=== PATIENT | female | born 1980 | race Caucasian/White ===

== ENCOUNTER 2017-06-21 04:30 | Inpatient (IN) | payer OTHER ==
[2017-06-21] MEDS ORDERED: SODIUM CHLORIDE 0.9% 500 ML INFUS.BAG IV ONE (05:22)
--- NOTE | 2017-06-21 05:23 | PDOC ---
Attending Attestation - Resident Resident Name: Melinda Boyce - ED Attending Attestation I have performed the following: I have examined & evaluated the patient, The case was reviewed & discussed with the resident - HPI HPI: 06/21/17 06:59 Pt had miscarriage at home Sat night, now with fever and cramps. Pt is M1 os closed; minimal blood in vault - Physicial Exam PE: 06/21/17 07:00 agree with resident exam - Medical Decision Making 06/21/17 07:01 Will be sighed out to day ER team; they will follow urine culture and labs and eval after rocephin and follow US for POCs. Pt requires admission to survey analyst Her PMD is Dr. Brand
[2017-06-21] MEDS ORDERED: ONDANSETRON 4 MG/2 ML VIAL IVPUSH ONE (05:39)
[2017-06-21] MEDS ORDERED: ACETAMINOPHEN 1000 MG/100 ML VIAL (NON FORMULARY) IVPB ONE (05:39)
--- NOTE | 2017-06-21 05:40 | PDOC ---
History of Present Illness <Daniele Muñoz - Last Filed: 06/27/17 07:15> - General History Source: Patient Exam Limitations: No Limitations - History of Present Illness Initial Comments: This is a 36 year old female who had a miscarriage 1.5 days ago (about 9 weeks into her ) and who now presents with fever and lower abdominal pain for the past 24 hours. The pain is 6/10, worsening, constant cramping with sharper twinges of pain, located in the lower abdomen and radiating to the lower back and both flanks. 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 She has additionally had pounding headache radiating to the neck, lightheadedness, nausea, vaginal spotting, and (on Wednesday) passage of clots. She denies any vaginal discharge, dysuria, vomiting, passing out, vision changes, chest pain, shortness of breath, numbness, tingling, focal weakness, or other symptoms. Her SKEIN YARN DYER HELPER is Guerrero Murphy and she last saw him on Wednesday when he did an ultrasound showing no e/o heart beat and showing estimated age 6 weeks based on size (for gestation of 9 weeks). Ms. Fink opted to try letting the miscarriage pass naturally without intervention. <Melinda Boyce - Last Filed: 06/27/17 07:46> - General Stated Complaint: FEVER,CHILLS Time Seen by Provider: 06/21/17 04:59 Past History <Daniele Muñoz - Last Filed: 06/27/17 07:15> - Past Medical History Asthma: No Cancer: No Cardiac Disorders: No Diabetes: No HTN: No Seizures: No Thyroid Disease: No - Suicide/Smoking/Psychosocial Hx Smoking History: Never smoked Have you smoked in the past 12 months: No Hx Alcohol Use: No Drug/Substance Use Hx: No Hx Substance Use Treatment: No <Melinda Boyce - Last Filed: 06/27/17 07:46> - Past Medical History Allergies/Adverse Reactions: Allergies Allergy/AdvReac Type Severity Reaction Status Date / Time No Known Allergies Allergy Verified 08/05/15 21:03 Home Medications: Ambulatory Orders Vitamins (Sjr) - 1 tab PO DAILY 07/29/15 Ibuprofen [Motrin -] 600 mg PO QID PRN #30 tablet 08/08/15 Doxycycline Hyclate [Vibramycin] 100 mg PO BID 11 Days #22 capsule 06/22/17 Review of Systems - Review of Systems Constitutional: Yes: Chills, Fever, Malaise. No: Unexplained wgt Loss HEENTM: No: Nose Congestion, Throat Pain Respiratory: No: Cough, Shortness of Breath Cardiac (ROS): No: Chest Pain, Palpitations ABD/GI: Yes: Nausea, Abdominal cramping. No: Constipated, Diarrhea, Vomiting : Yes: Other (vaginal spotting). No: Burning, Dysuria Musculoskeletal: Yes: Back Pain. No: Neck Pain Integumentary: No: Bruising, Rash Neurological: Yes: Headache, Dizziness (lightheaded). No: Numbness, Tingling, Weakness Endocrine: No: Unexplained Weight Gain, Unexplained Weight Loss <Melinda Boyce - Last Filed: 06/27/17 07:46> *Physical Exam - Vital Signs Last Vital Signs Temp Pulse Resp BP Pulse Ox 98.3 F 87 20 134/80 98 06/21/17 08:31 06/21/17 08:31 06/21/17 08:31 06/21/17 08:31 06/21/17 08:31 <Daniele Muñoz - Last Filed: 06/27/17 07:15> - Physical Exam General Appearance: Yes: Nourished, Appropriately Dressed, Other (appears pale and a bit dehydrated with dark circles around her eyes, pleasant adult female answering questions appropriately). No: Apparent Distress HEENT: positive: EOMI, VINCE, Normal ENT Inspection, Normal Voice, Hearing Grossly Normal. negative: Scleral Icterus (R), Scleral Icterus (L), Nasal Congestion Neck: positive: Trachea midline, Supple. negative: Tender, Rigid Respiratory/Chest: positive: Lungs Clear, Normal Breath Sounds. negative: Respiratory Distress, Crackles, Rhonchi, Stridor, Wheezing Cardiovascular: positive: Regular Rhythm, Tachycardia (mild). negative: Murmur Gastrointestinal/Abdominal: positive: Normal Bowel Sounds, Tender (moderate suprapubic and umbilical ttp), Soft. negative: Organomegaly, Pulsatile Mass, Guarding Musculoskeletal: positive: Normal Inspection. negative: CVA Tenderness, Decreased Range of Motion, Vertebral Tenderness Extremity: positive: Normal Capillary Refill, Normal Inspection, Normal Range of Motion. negative: Tender, Cyanosis, Swelling Integumentary: positive: Normal Color, Dry, Warm, Pale. negative: Erythema, Rash, Bruising Neurologic: positive: square shear operator II-XII NML intact (grossly), Fully Oriented, Alert, Normal Mood/Affect, Normal Response, Motor Strength 5/5, Other (gait stable) <Melinda Boyce - Last Filed: 06/27/17 07:46> ED Treatment Course - LABORATORY CBC & Chemistry Diagram: 06/22/17 08:00 06/22/17 08:00 - ADDITIONAL ORDERS Additional order review: Laboratory Results 06/21/17 06/21/17 06/21/17 07:00 05:30 05:30 PT with INR INR PTT (Actin FS) VBG pH POC VBG pCO2 POC VBG pO2 Mixed VBG HCO3 Sodium Potassium Chloride Carbon Dioxide Anion Gap BUN Creatinine Creat Clearance w eGFR Random Glucose Lactic Acid Calcium Total Bilirubin AST ALT Alkaline Phosphatase Creatine Kinase Troponin I Total Protein Albumin Beta HCG, Quant 5776.4 Urine Color Yellow Urine Appearance Slcloudy Urine pH 5.0 Ur Specific [place] 1.020 Urine Protein Negative Urine Glucose (UA) Negative Urine Ketones Negative Urine Blood 3+ H Urine Nitrite Negative Urine Bilirubin Negative Urine Urobilinogen Negative Urine WBC (Auto) 7 Urine RBC (Auto) <1 Ur Epithelial Cells Rare Urine Mucus Rare Blood Type O POSITIVE Antibody Screen Negative 06/21/17 06/21/17 06/21/17 05:30 05:30 05:30 PT with INR INR PTT (Actin FS) VBG pH 7.45 H POC VBG pCO2 35.6 L POC VBG pO2 34.3 Mixed VBG HCO3 24.3 Sodium 138 Potassium 3.2 L Chloride 102 Carbon Dioxide 25 Anion Gap 11 BUN 9 Creatinine 0.7 D Creat Clearance w eGFR > 60 Random Glucose 101 Lactic Acid 1.1 Calcium 8.6 Total Bilirubin 0.9 AST 15 ALT 18 Alkaline Phosphatase 62 Creatine Kinase 101 Troponin I < 0.02 Total Protein 7.2 Albumin 4.0 Beta HCG, Quant Urine Color Urine Appearance Urine pH Ur Specific [place] Urine Protein Urine Glucose (UA) Urine Ketones Urine Blood Urine Nitrite Urine Bilirubin Urine Urobilinogen Urine WBC (Auto) Urine RBC (Auto) Ur Epithelial Cells Urine Mucus Blood Type Antibody Screen 06/21/17 05:30 PT with INR 14.00 H INR 1.24 H PTT (Actin FS) 29.8 VBG pH POC VBG pCO2 POC VBG pO2 Mixed VBG HCO3 Sodium Potassium Chloride Carbon Dioxide Anion Gap BUN Creatinine Creat Clearance w eGFR Random Glucose Lactic Acid Calcium Total Bilirubin AST ALT Alkaline Phosphatase Creatine Kinase Troponin I Total Protein Albumin Beta HCG, Quant Urine Color Urine Appearance Urine pH Ur Specific [place] Urine Protein Urine Glucose (UA) Urine Ketones Urine Blood Urine Nitrite Urine Bilirubin Urine Urobilinogen Urine WBC (Auto) Urine RBC (Auto) Ur Epithelial Cells Urine Mucus Blood Type Antibody Screen 06/21/17 05:30 RBC 4.08 MCV 90.1 MCHC 34.9 RDW 12.8 MPV 9.0 Neutrophils % 88.6 H D Lymphocytes % 3.7 L D Monocytes % 7.1 Eosinophils % 0.2 D Basophils % 0.4 - RADIOLOGY Radiology Studies Ordered: Category Date Time Status TRANSVAGINAL ULTRASOUND US [US] Stat Ultrasound 06/21/17 07:39 Completed - Medications Given in the ED: ED Medications Discontinued Medications Generic Name Dose Route Start Last Admin Trade Name Matheus PRN Reason Stop Dose Admin Acetaminophen 1,000 mg 06/21/17 05:39 06/21/17 06:13 Ofirmev Injection - IVPB 06/21/17 05:40 1,000 mg ONCE ONE Administration Ceftriaxone Sodium 1,000 mg/ 50 mls @ 100 mls/hr 06/21/17 06:58 06/21/17 07: 02 Dextrose IVPB 06/21/17 07:27 100 mls/hr ONCE ONE Administration Ondansetron HCl 4 mg 06/21/17 05:39 06/21/17 06:16 Zofran Injection IVPUSH 06/21/17 05:40 4 mg NOW ONE Administration Potassium Chloride 40 meq 06/21/17 06:34 06/21/17 06:47 K-Dur - PO 06/21/17 06:35 40 meq ONCE ONE Administration Sodium Chloride 1,000 ml 06/21/17 05:22 06/21/17 06:03 Normal Saline - IV 06/21/17 05:23 1,000 ml ONCE ONE Administration <Daniele Muñoz - Last Filed: 06/27/17 07:15> - LABORATORY CBC & Chemistry Diagram: 06/22/17 08:00 06/22/17 08:00 <Melinda Boyce - Last Filed: 06/27/17 07:46> Medical Decision Making - Medical Decision Making 36 YOF with current known miscarriage at 9 wks gestation (6 wk size fetus per her report). She presents with abdominal pain, fever, nausea, headache, lightheadedness, light vaginal spotting. On initial vitals she has mild tachycardia (105) and is febrile (up to 102.2 initially). On exam she has moderate suprapubic and umbilical ttp, appears a bit pale. DDX IBNLT septic , endometritis, UTI/pyelo, influenza or other viral syndrome. Ordered is sepsis order set with CBCD, CMP, coags, T&S, cardiac panel, lactate, blood cx, UA cx. Also CXR, EKG, hCG quant, sxs control with IV Tylenol, Zofran, IVF. Labs result with mildly elevated WBC, nl H/H, INR 1.24, blood and leukocyte esterase + on UA. Potassium replaced. Patient's care is signed out to Dr. Muñoz at the end of my shift awaiting pelvic US. <CarliMelinda - Last Filed: 06/27/17 07:46> *DC/Admit/Observation/Transfer - Discharge Dispostion Admit: Yes <Daniele Muñoz - Last Filed: 06/27/17 07:15> <CarliMelinda - Last Filed: 06/27/17 07:46> Diagnosis at time of Disposition: Missed with demise before 20 completed weeks of gestation, Sepsis due to incomplete spontaneous - Discharge Dispostion Disposition: HOME Condition at time of disposition: Good
[2017-06-21 05:47] LABS: BASOPHIL 0.4 % (0-2.0); EOSINOPHIL 0.2 % (0-4.5); MCH 31.4 pg (25.7-33.7); MCHC 34.9 g/dl (32.0-36.0); MEAN CELL VOLUME 90.1 fl (80-96); NEUTROPHILS 88.6 % (42.8-82.8); PLATELET COUNT 171 K/MM3 (134-434); RDW 12.8 % (11.6-15.6); WHITE BLOOD COUNT 10.3 K/mm3 (4.0-10.0)
[2017-06-21 05:54] LABS: VENOUS BLOOD GAS HCO3 24.3 meq/L (19-25); VENOUS PH 7.45 (7.32-7.42)
[2017-06-21 06:02] LABS: INR 1.24 (0.82-1.09)
[2017-06-21 06:05] LABS: ACTIVATED PTT 29.8 SECONDS (26.9-34.4)
[2017-06-21] MEDS ORDERED: ACETAMINOPHEN INJECTION 100 ML IVPB ONE ×3 (06:06→20:41)
[2017-06-21 06:22] LABS: ANION GAP 11 (8-16); BILIRUBIN,TOTAL 0.9 mg/dL (0.2-1.0); CALCIUM 8.6 mg/dL (8.5-10.1); CO2 25 mmol/L (21-32); CREATININE 0.7 mg/dL (0.55-1.02); GLUCOSE,RANDOM 101 mg/dL (74-106); SGOT/AST 15 U/L (15-37); SGPT/ALT 18 U/L (12-78); TOT PROT 7.2 g/dl (6.4-8.2)
[2017-06-21 06:25] LABS: ALK PHOS 62 U/L (45-117); CPK 101 IU/L (26-192); TROPONIN I < 0.02 ng/ml (0.00-0.05)
[2017-06-21] MEDS ORDERED: POTASSIUM CHLORIDE TABS 20 MEQ TABLET.ER (FP) PO ONE (06:34)
[2017-06-21] MEDS ORDERED: CEFTRIAXONE 1,000 MG in DEXTROSE 5%-WATER - 50 ML IVPB ONE (06:58)
[2017-06-21 07:11] LABS: URINE APPEARANCE SLCLOUDY; URINE BILIRUBIN NEGATIVE (NEGATIVE); URINE BLOOD 3+ (NEGATIVE); URINE COLOR YELLOW; URINE GLUCOSE (UA) NEGATIVE (NEGATIVE); URINE KETONE NEGATIVE (NEGATIVE); URINE NITRITE NEGATIVE (NEGATIVE); URINE PROTEIN NEGATIVE (NEGATIVE); URINE UROBILINOGEN NEGATIVE mg/dL (0.2-1.0)
--- NOTE | 2017-06-21 09:37 | PDOC ---
*Physical Exam - Vital Signs Last Vital Signs Temp Pulse Resp BP Pulse Ox 98.3 F 87 20 134/80 98 06/21/17 08:31 06/21/17 08:31 06/21/17 08:31 06/21/17 08:31 06/21/17 08:31 ED Treatment Course - LABORATORY CBC & Chemistry Diagram: 06/21/17 05:30 06/21/17 05:30 - ADDITIONAL ORDERS Additional order review: Laboratory Results 06/21/17 06/21/17 06/21/17 07:00 05:30 05:30 PT with INR INR PTT (Actin FS) VBG pH POC VBG pCO2 POC VBG pO2 Mixed VBG HCO3 Sodium Potassium Chloride Carbon Dioxide Anion Gap BUN Creatinine Creat Clearance w eGFR Random Glucose Lactic Acid Calcium Total Bilirubin AST ALT Alkaline Phosphatase Creatine Kinase Troponin I Total Protein Albumin Beta HCG, Quant 5776.4 Urine Color Yellow Urine Appearance Slcloudy Urine pH 5.0 Ur Specific [place] 1.020 Urine Protein Negative Urine Glucose (UA) Negative Urine Ketones Negative Urine Blood 3+ H Urine Nitrite Negative Urine Bilirubin Negative Urine Urobilinogen Negative Blood Type O POSITIVE Antibody Screen Negative 06/21/17 06/21/17 06/21/17 05:30 05:30 05:30 PT with INR INR PTT (Actin FS) VBG pH 7.45 H POC VBG pCO2 35.6 L POC VBG pO2 34.3 Mixed VBG HCO3 24.3 Sodium 138 Potassium 3.2 L Chloride 102 Carbon Dioxide 25 Anion Gap 11 BUN 9 Creatinine 0.7 D Creat Clearance w eGFR > 60 Random Glucose 101 Lactic Acid 1.1 Calcium 8.6 Total Bilirubin 0.9 AST 15 ALT 18 Alkaline Phosphatase 62 Creatine Kinase 101 Troponin I < 0.02 Total Protein 7.2 Albumin 4.0 Beta HCG, Quant Urine Color Urine Appearance Urine pH Ur Specific [place] Urine Protein Urine Glucose (UA) Urine Ketones Urine Blood Urine Nitrite Urine Bilirubin Urine Urobilinogen Blood Type Antibody Screen 06/21/17 05:30 PT with INR 14.00 H INR 1.24 H PTT (Actin FS) 29.8 VBG pH POC VBG pCO2 POC VBG pO2 Mixed VBG HCO3 Sodium Potassium Chloride Carbon Dioxide Anion Gap BUN Creatinine Creat Clearance w eGFR Random Glucose Lactic Acid Calcium Total Bilirubin AST ALT Alkaline Phosphatase Creatine Kinase Troponin I Total Protein Albumin Beta HCG, Quant Urine Color Urine Appearance Urine pH Ur Specific [place] Urine Protein Urine Glucose (UA) Urine Ketones Urine Blood Urine Nitrite Urine Bilirubin Urine Urobilinogen Blood Type Antibody Screen 06/21/17 05:30 RBC 4.08 MCV 90.1 MCHC 34.9 RDW 12.8 MPV 9.0 Neutrophils % 88.6 H D Lymphocytes % 3.7 L D Monocytes % 7.1 Eosinophils % 0.2 D Basophils % 0.4 - RADIOLOGY Radiology Studies Ordered: Category Date Time Status TRANSVAGINAL ULTRASOUND US [US] Stat Ultrasound 06/21/17 07:39 Completed - Medications Given in the ED: ED Medications Discontinued Medications Generic Name Dose Route Start Last Admin Trade Name Freq PRN Reason Stop Dose Admin Acetaminophen 1,000 mg 06/21/17 05:39 06/21/17 06:13 Ofirmev Injection - IVPB 06/21/17 05:40 1,000 mg ONCE ONE Administration Ceftriaxone Sodium 1,000 mg/ 50 mls @ 100 mls/hr 06/21/17 06:58 06/21/17 07: 02 Dextrose IVPB 06/21/17 07:27 100 mls/hr ONCE ONE Administration Ondansetron HCl 4 mg 06/21/17 05:39 06/21/17 06:16 Zofran Injection IVPUSH 06/21/17 05:40 4 mg NOW ONE Administration Potassium Chloride 40 meq 06/21/17 06:34 06/21/17 06:47 K-Dur - PO 06/21/17 06:35 40 meq ONCE ONE Administration Sodium Chloride 1,000 ml 06/21/17 05:22 06/21/17 06:03 Normal Saline - IV 06/21/17 05:23 1,000 ml ONCE ONE Administration Medical Decision Making - Medical Decision Making 06/21/17 09:36 transvaginal u/s: \ Intrauterine gestational sac and pole with an estimated gestational age of 6 weeks 5 days. No heart activity could be documented and there is mild irregularity of the gestational sac compatible with demise. Correlation with serum beta hCG level is needed. Will speak to dr Murphy to ankita if D&C is warranted. *DC/Admit/Observation/Transfer Diagnosis at time of Disposition: Missed with demise before 20 completed weeks of gestation, Sepsis due to incomplete spontaneous - Referrals Referrals: Guerrero Murphy MD [Staff Physician] - Yo Schulte MD [Primary Care Provider] - - Patient Instructions - Post Discharge Activity
[2017-06-21 09:38] LABS: URINE MUCUS RARE; URINE RBC <1 /hpf (0-3); URINE WBC 7 /hpf (3-5)
[2017-06-21] MEDS ORDERED: DOXYCYCLINE INJECTION 100 MG in DEXTROSE 5%-WATER - 100 ML IVPB SCH (11:30)
[2017-06-21] MEDS: METRONIDAZOLE 500 MG PREMIXED 500 MG/100 ML MG IVPB SCH ×2 (11:30→17:48)
[2017-06-21] MEDS ORDERED: DOXYCYCLINE HYCLATE 100 MG VIAL ONE (11:32)
[2017-06-21] MEDS ORDERED: METRONIDAZOLE 500 MG PREMIXED 500 MG/100 ML MG IVPB ONE ×2 (11:32→20:41)
[2017-06-21 12:40] VITALS: BMI 29.0
--- NOTE | 2017-06-21 13:37 | EKG ---
Test Reason : Blood Pressure : / mmHG Vent. Rate : 094 BPM Atrial Rate : 094 BPM P-R Int : 160 ms QRS Dur : 078 ms QT Int : 372 ms P-R-T Axes : 056 054 042 degrees QTc Int : 465 ms NORMAL SINUS RHYTHM NORMAL ECG NO PREVIOUS ECGS AVAILABLE Confirmed by GEOVANNA STORY MD ([id number]) on 06/21/2017 1:36:59 PM Referred By: Confirmed By:GEOVANNA STORY MD
[2017-06-21 18:14] LABS: URINE LEUK ESTERASE 2+ (NEGATIVE)
--- NOTE | 2017-06-21 18:55 | HP ---
Past Medical History - Primary Care Physician PCP:: Guerrero Murphy - Admission Chief Complaint: 36yo P3 with missed Ab at 6-7wks by US and fever History of Present Illness: Pt was diagnosed with missed AB 4 days ago, presented to ER with c/o fever and abdominal cramps since last night. No SOB, chest pain, , or GI issues History Source: Patient, Medical Record Limitations to Obtaining History: No Limitations - Past Medical History MERCURY RECOVERER: No: Alzheimer's, CVA, Dementia, Migraine, Multiple Sclerosis, Peripheral Neuropathy, Parkinson's, Seizure, Syncope, TIA, Vertigo, Other Cardiovascular: No: AFIB, Aneurysm, Aortic Insufficiency, Aortic Stenosis, CAD, CHF, Deep Vein Thrombosis, HTN, Hyperlipdemia, [place], Mitral Insufficiency, Mitral Stenosis, Murmur, Pulmonary Hypertension, Other Pulmonary: No: Asthma, Bronchitis, Cancer, COPD, O2 Dependent, Pneumonia, Previously Intubated, Pulmonary Embolus, Pulmonary Fibrosis, Sleep Apnea, Other Gastrointestinal: No: Ascites, Cancer, Constipation, Crohn's Disease, Diverticulitis, Diverticulosis, Esophageal Varices, Gastritis, GERD, GI Bleed, Hemorrhoids, Hiatal Hernia, Inflamatory Bowel Disease, Irritable Bowel Disease, Pancreatitis, Peptic Ulcer Disease, Ulcerative Colitis, Other Hepatobiliary: No: Cirrhosis, Cholelithiasis, Cholecystitis, Choledocholithiasis , Hepatitis A, Hepatitis B, Hepatitis C, Other Renal/: No: Renal Failure, Renal Inusuff, BPH, Cancer, Hematuria, Hemodialysis , Neurogenic Bladder, Renal Calculi, UTI, Other Reproductive: No: Ectopic , Endometriosis, Fibroids, PID, Polycystic Ovary Syndrome, Postmenopausal, Other ...Para: 3 Heme/Onc: Yes: Anemia Infectious Disease: No: AIDS, C-Diff, Herpes Zoster, HIV, MRSA, STD's, Tuberculosis, VREF, Other Psych: No: Addictions, Anxiety, Bipolar, Depression, Panic, Psychosis, Schizophrenia, Other Rheumatology: No: Fibromyalgia, Gout, Lupus, Rheumatoid Arthritis, Sarcoidosis, Vasculitis, Other ENT: No: Allergic Rhinitis, Sinusitis, Other Endocrine: No: [place]'s Disease, Vida's Disease, Diabetes Insipidus, Diabetes Mellitus, Hyperparathyroidism, Hyperthyroidism, Hypothyroidism, Osteopenia, SIADH, Other - Past Surgical History Past Surgical History: Yes: None Hx Myomectomy: No Hx Transabdominal Cerclage: No - Smoking History Smoking history: Never smoked Have you smoked in the past 12 months: No - Alcohol/Substance Use Hx Alcohol Use: No History of Substance Use: reports: None - Social History Usual Living Arrangement: Yes: With Child ADL: Independent History of Recent Travel: No Home Medications - Allergies Allergies/Adverse Reactions: Allergies Allergy/AdvReac Type Severity Reaction Status Date / Time No Known Allergies Allergy Verified 08/05/15 21:03 - Home Medications Home Medications: Ambulatory Orders Vitamins (Sjr) - 1 tab PO DAILY 07/29/15 Ibuprofen [Motrin -] 600 mg PO QID PRN #30 tablet 08/08/15 Family Disease History - Family Disease History Family History: Denies Review of Systems - Review of Systems Constitutional: reports: Chills Eyes: reports: No Symptoms HENT: reports: No Symptoms Neck: reports: No Symptoms Cardiovascular: reports: No Symptoms Respiratory: reports: No Symptoms Gastrointestinal: reports: No Symptoms Genitourinary: reports: Vaginal Bleeding Breasts: reports: No Symptoms Reported Musculoskeletal: reports: No Symptoms Integumentary: reports: No Symptoms Neurological: reports: No Symptoms Endocrine: reports: No Symptoms Hematology/Lymphatic: reports: No Symptoms Psychiatric: reports: No Symptoms Pain Intensity: 2 Physical Exam-SAWSMITH Vital Signs: Vital Signs Temperature 99.1 F 06/21/17 17:41 Pulse Rate 95 H 06/21/17 17:41 Respiratory Rate 18 06/21/17 17:41 Blood Pressure 113/58 06/21/17 17:41 O2 Sat by Pulse Oximetry (%) 98 06/21/17 12:30 Constitutional: Yes: Well Nourished, No Distress, Calm Eyes: Yes: WNL, Conjunctiva Clear HENT: Yes: WNL, Atraumatic, Normocephalic Neck: Yes: WNL, Supple Cardiovascular: Yes: WNL, Regular Rate and Rhythm Respiratory: Yes: WNL, Regular, CTA Bilaterally Gastrointestinal: Yes: WNL, Normal Bowel Sounds, Soft ...Rectal Exam: Yes: Deferred Renal/: Yes: WNL Pelvis: Yes: Bladder Non Palpable External Genitalia: Yes: Normal Internal Exam Deferred: No Vaginal Exam: Yes: Bleeding (light) Cervix: Yes: Normal Uterus: Yes: Normal Adnexa: Normal: Left, Right Musculoskeletal: Yes: WNL Extremities: Yes: WNL Edema: No Integumentary: Yes: WNL Neurological: Yes: WNL, Alert, Oriented ...Motor Strength: WNL Psychiatric: Yes: WNL, Alert, Oriented Labs: CBC, BMP 06/21/17 05:30 06/21/17 05:30 Imaging - Results Ultrasound: Report Reviewed Assessment/Plan 36yo P3 with septic Ab. Pt was admitted for IV abx and planned D&C. At this point, the pt is stable but febrile. We are awaiting the OR availability to proceed with planned procedure. I discussed the risks, benefits, alternatives of surgery with the pt. I explained the risks of sepsis, uterine scarring, infertility, perforation, need for additional surgery to treat complications, etc. Pt verbalized her understanding.
[2017-06-21] MEDS ORDERED: METRONIDAZOLE 500 MG PREMIXED 500 MG/100 ML MG IVPB SCH (19:15)
[2017-06-21] MEDS ORDERED: DEXTROSE 5%-NORMAL SALINE 1,000 ML IV SCH (19:15)
[2017-06-21] MEDS ORDERED: MIDAZOLAM HCL 2 MG/2 ML SINGLE DOSE VIAL ONE (19:51)
[2017-06-21] MEDS ORDERED: DEXAMETHASONE SOD PHOSPHATE 4 MG/1 ML VIAL ONE (19:53)
[2017-06-21] MEDS ORDERED: PROPOFOL 20 ML ONE (19:53)
[2017-06-21] MEDS ORDERED: HYDROmorphone HCL CARPU-JECT 1 MG/1 ML DISP.SYRIN IVPUSH PRN (20:31)
[2017-06-21] MEDS ORDERED: ONDANSETRON 4 MG/2 ML VIAL IVPUSH PRN (20:31)
--- NOTE | 2017-06-21 20:31 | OP ---
Operative Note - Note: Operative Date: 06/21/17 Pre-Operative Diagnosis: Septic Ab Operation: Suction, D&C. Findings: Opened cervical os with mild bleeding, POC on curettage Post-Operative Diagnosis: Same as Pre-op Surgeon: Guerrero Murphy Anesthesiologist/POTATO SEED CUTTER: Gurdeep Gonzalez Anesthesia: General Specimens Removed: POC Estimated Blood Loss (mls): 50 Drains, Volume Out (mls): 0 Blood Volume Replaced (mls): 0 Fluid Volume Replaced (mls): 400 Operative Report Dictated: Yes
[2017-06-21] MEDS ORDERED: ACETAMINOPHEN 1000 MG/100 ML VIAL (NON FORMULARY) IVPB PRN (20:40)
[2017-06-21] MEDS ORDERED: HYDROmorphone HCL CARPU-JECT 1 MG/1 ML DISP.SYRIN IVPB PRN (20:41)
[2017-06-21] MEDS ORDERED: IBUPROFEN 600 MG TABLET (FP) PO PRN (20:45)
[2017-06-21] MEDS: DOXYCYCLINE INJECTION 100 MG in DEXTROSE 5%-WATER - 100 ML IVPB SCH (22:34)
[2017-06-22] MEDS: METRONIDAZOLE 500 MG PREMIXED 500 MG/100 ML MG IVPB SCH ×5 (02:00→18:31)
[2017-06-22 08:47] LABS: BASOPHIL 0.1 % (0-2.0); MCH 30.8 pg (25.7-33.7); MCHC 33.7 g/dl (32.0-36.0); MEAN CELL VOLUME 91.4 fl (80-96); MEAN PLT VOLUME 9.1 fl (7.5-11.1); NEUTROPHILS 88.8 % (42.8-82.8); PLATELET COUNT 160 K/MM3 (134-434); RDW 12.7 % (11.6-15.6); WHITE BLOOD COUNT 7.4 K/mm3 (4.0-10.0)
--- NOTE | 2017-06-22 09:01 | PN ---
Progress Note (SOAP) - Subjective Chief Complaint: No complaints, feels better History of Present Illness: s/p D&C for missed/septic Ab - Current Medications Current Medications: Active Medications Acetaminophen (Ofirmev Injection -) 1,000 mg IVPB Q6H PRN PRN Reason: FEVER OR PAIN Last Admin: 06/21/17 20:45 Dose: 1,000 mg Hydromorphone HCl (Dilaudid Injection -) 0.5 mg IVPB [id number] PRN PRN Reason: PAIN CEFTRIAXONE 1 G/50 ML PREMIX (Ceftriaxone 1 Gm-D5w Bag) 50 mls @ 100 mls/hr IVPB DAILY [facility] Doxycycline Hyclate 100 mg/ (Dextrose) 100 mls @ 100 mls/hr IVPB BID [facility] Last Admin: 06/21/17 22:34 Dose: 100 mls/hr Dextrose/Sodium Chloride (D5-Ns -) 1,000 mls @ 125 mls/hr IV ASDIR [facility] Last Admin: 06/22/17 05:00 Dose: 125 mls/hr Metronidazole (Flagyl 500mg Premixed Ivpb -) 500 mg in 100 mls @ 100 mls/hr IVPB Q6H [facility] Last Admin: 06/22/17 06:22 Dose: 100 mls/hr Ibuprofen (Motrin -) 600 mg PO QID PRN PRN Reason: PAIN OR FEVER Last Admin: 06/22/17 08:14 Dose: 600 mg Ondansetron HCl (Zofran Injection) 4 mg IVPUSH Q6H PRN PRN Reason: NAUSEA AND/OR VOMITING Multivit/Folic Acid/Iron ( Vitamins (Sjr) -) 1 tab PO DAILY [facility] - Objective Vital Signs: Vital Signs Temperature 98.0 F 06/22/17 06:00 Pulse Rate 66 06/22/17 06:00 Respiratory Rate 18 06/22/17 06:00 Blood Pressure 98/53 06/22/17 06:00 O2 Sat by Pulse Oximetry (%) 98 06/21/17 22:15 Constitutional: Yes: Well Nourished, No Distress, Calm Eyes: Yes: WNL, Conjunctiva Clear HENT: Yes: WNL, Atraumatic, Normocephalic Neck: Yes: WNL, Supple, Trachea Midline Cardiovascular: Yes: WNL, Regular Rate and Rhythm Respiratory: Yes: WNL, Regular, CTA Bilaterally Gastrointestinal: Yes: WNL, Normal Bowel Sounds, Soft Genitourinary: Yes: WNL Musculoskeletal: Yes: WNL Extremities: Yes: WNL Peripheral Pulses WNL: No Edema: No Integumentary: Yes: WNL Neurological: Yes: WNL, Alert, Oriented ...Motor Strength: Yes: WNL Psychiatric: Yes: WNL, Alert, Oriented Assessment/Plan 36yo P3 s/p D&C for missed/septic Ab. The pt is clinically improving, feels well. She is afebrile x 12hrs. Plan to continue IV abx until afebrile, at least 24hrs. Check CBC.
[2017-06-22 09:09] LABS: ALBUMIN 3.1 g/dl (3.4-5.0); ANION GAP 6 (8-16); CALCIUM 8.3 mg/dL (8.5-10.1); CO2 27 mmol/L (21-32); CREATININE 0.6 mg/dL (0.55-1.02); GLUCOSE,RANDOM 137 mg/dL (74-106); MAGNESIUM 1.9 mg/dL (1.8-2.4); SGOT/AST 15 U/L (15-37); SGPT/ALT 17 U/L (12-78)
[2017-06-22 09:12] LABS: ALK PHOS 47 U/L (45-117); BILIRUBIN,TOTAL 0.6 mg/dL (0.2-1.0); TOT PROT 6.4 g/dl (6.4-8.2)
[2017-06-22] MEDS: DOXYCYCLINE INJECTION 100 MG in DEXTROSE 5%-WATER - 100 ML IVPB SCH ×2 (09:45→21:13)
--- NOTE | 2017-06-22 10:19 | PN ---
Progress Note (short form) - Note Progress Note: Anesthesia Post op Pt seen and examined S:alert and awake O: Vital Signs Temperature 98.0 F 06/22/17 06:00 Pulse Rate 66 06/22/17 06:00 Respiratory Rate 18 06/22/17 06:00 Blood Pressure 98/53 06/22/17 06:00 O2 Sat by Pulse Oximetry (%) 98 06/21/17 22:15 CBC, BMP 06/22/17 08:00 06/22/17 08:00 A/P:Current Active Problems Missed with demise before 20 completed weeks of gestation (Acute) Sepsis due to incomplete spontaneous (Acute) s/p D n C Doing well post op Continue current care carrillo Gutierrez MD
--- NOTE | 2017-06-22 10:23 | OP ---
DATE OF OPERATION: 06/21/2017 PREOPERATIVE DIAGNOSIS: Septic at approximately 7 weeks of estimated gestational age. POSTOPERATIVE DIAGNOSIS: Septic at approximately 7 weeks of estimated gestational age. PROCEDURE: Suction dilatation and curettage. SURGEON: Guerrero Murphy MD ANESTHESIOLOGIST: Gurdeep Gonzalez MD ANESTHESIA: General LMA. COMPLICATIONS: None. ESTIMATED BLOOD LOSS: 50 mL INTRAVENOUS FLUIDS: 400 mL of crystalloids. PATHOLOGY: Products of conception. FINDINGS: Examination under anesthesia revealed a small anteverted uterus with an open cervical os. Mild vaginal bleeding was noted from the cervix. Products of conception were noted at suction curettage. No retained products of conception were noted at the end of the procedure. DESCRIPTION OF PROCEDURE: The patient was met preoperatively. The risks, benefits, and alternatives of surgery were discussed in details. All questions were answered. The patient was then brought to the OR with the IV running. She was placed on the surgical table in the supine position. The general anesthesia was achieved without difficulty. The patient was then placed in a dorsal lithotomy position using adjustable Mil stirrups. She was examined under anesthesia with the findings as described above. The patient was then prepped and draped in the usual sterile fashion. A sterile speculum was introduced inside the vagina. The anterior cervical lip was grasped with polyp forceps. An 8-mm suction curette was introduced carefully into the uterine cavity. The cervix did not need to be dilated. A suction curettage was performed to remove all of the products of conception. Once the suction curettage was completed, the uterine cavity was explored with the sharp curette to confirm no retained products of conception. Since there were no retained products of conception, no sharp curettage was necessary. All of the instruments were removed from the patient. Good hemostasis was confirmed. Sponge, lap, and needle counts were correct. The patient was transferred to recovery room in stable condition. Jose [id number]
[2017-06-22] MEDS: CEFTRIAXONE 1 G/50 ML PREMIX 50 ML IVPB SCH (11:06)
[2017-06-22] MEDS: PRENATAL VITAMINS W/ FOLIC ACID TABLET (FP) PO SCH (11:10)
[2017-06-23] MEDS: METRONIDAZOLE 500 MG PREMIXED 500 MG/100 ML MG IVPB SCH ×3 (00:29→12:17)
--- NOTE | 2017-06-23 08:55 | PN ---
Progress Note (SOAP) - Subjective Chief Complaint: No complaints History of Present Illness: POD#2 s/p D&C for missed/septic Ab - Current Medications Current Medications: Active Medications Acetaminophen (Ofirmev Injection -) 1,000 mg IVPB Q6H PRN PRN Reason: FEVER OR PAIN Last Admin: 06/21/17 20:45 Dose: 1,000 mg Hydromorphone HCl (Dilaudid Injection -) 0.5 mg IVPB [id number] PRN PRN Reason: PAIN CEFTRIAXONE 1 G/50 ML PREMIX (Ceftriaxone 1 Gm-D5w Bag) 50 mls @ 100 mls/hr IVPB DAILY [facility] Last Admin: 06/22/17 11:06 Dose: 100 mls/hr Doxycycline Hyclate 100 mg/ (Dextrose) 100 mls @ 100 mls/hr IVPB BID [facility] Last Admin: 06/22/17 21:13 Dose: 100 mls/hr Dextrose/Sodium Chloride (D5-Ns -) 1,000 mls @ 125 mls/hr IV ASDIR [facility] Last Admin: 06/22/17 05:00 Dose: 125 mls/hr Metronidazole (Flagyl 500mg Premixed Ivpb -) 500 mg in 100 mls @ 100 mls/hr IVPB Q6H [facility] Last Admin: 06/23/17 06:30 Dose: 100 mls/hr Ibuprofen (Motrin -) 600 mg PO QID PRN PRN Reason: PAIN OR FEVER Last Admin: 06/22/17 08:14 Dose: 600 mg Ondansetron HCl (Zofran Injection) 4 mg IVPUSH Q6H PRN PRN Reason: NAUSEA AND/OR VOMITING Multivit/Folic Acid/Iron ( Vitamins (Sjr) -) 1 tab PO DAILY [facility] Last Admin: 06/22/17 11:10 Dose: 1 tab - Objective Vital Signs: Vital Signs Temperature 98.3 F 06/22/17 22:00 Pulse Rate 61 06/22/17 22:00 Respiratory Rate 18 06/22/17 22:00 Blood Pressure 116/70 06/22/17 22:00 O2 Sat by Pulse Oximetry (%) 98 06/21/17 22:15 Constitutional: Yes: Well Nourished, No Distress, Calm Eyes: Yes: WNL, Conjunctiva Clear HENT: Yes: WNL, Atraumatic, Normocephalic Neck: Yes: WNL, Supple Cardiovascular: Yes: WNL, Regular Rate and Rhythm Respiratory: Yes: WNL, Regular, CTA Bilaterally Gastrointestinal: Yes: WNL, Normal Bowel Sounds, Soft ...Rectal Exam: Yes: WNL Genitourinary: Yes: WNL Musculoskeletal: Yes: WNL Extremities: Yes: WNL Edema: No Integumentary: Yes: WNL Neurological: Yes: WNL, Alert, Oriented ...Motor Strength: Yes: WNL Psychiatric: Yes: WNL, Alert, Oriented Labs Lab Results: CBC, BMP 06/22/17 08:00 06/22/17 08:00 Assessment/Plan 36yo P3 s/p D&C for missed/septic Ab. The pt is doing weel. She is afebrile > 36hrs. Plan to d/c home on oral abx
--- NOTE | 2017-06-23 08:58 | DS ---
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: Vital Signs Temperature 98.3 F 06/22/17 22:00 Pulse Rate 61 06/22/17 22:00 Respiratory Rate 18 06/22/17 22:00 Blood Pressure 116/70 06/22/17 22:00 O2 Sat by Pulse Oximetry (%) 98 06/21/17 22:15 Constitutional: Yes: Well Nourished, No Distress, Calm Eyes: Yes: WNL, Conjunctiva Clear, EOM Intact HENT: Yes: WNL, Atraumatic, Normocephalic Neck: Yes: WNL, Supple, Trachea Midline Cardiovascular: Yes: WNL, Regular Rate and Rhythm Respiratory: Yes: WNL, Regular, CTA Bilaterally Gastrointestinal: Yes: WNL, Normal Bowel Sounds, Soft Renal/: Yes: WNL Pelvis: Yes: WNL External Genitalia: Yes: Normal Vaginal Exam: Yes: Normal Cervix: Yes: Normal Uterus: Yes: Normal, Freely Moveable, Anteverted Musculoskeletal: Yes: WNL Extremities: Yes: WNL Edema: No Integumentary: Yes: WNL Neurological: Yes: WNL, Alert, Oriented ...Motor Strength: WNL Psychiatric: Yes: WNL, Alert, Oriented Labs: CBC, BMP 06/22/17 08:00 06/22/17 08:00 Discharge Summary Reason For Visit: SEPSIS,MISSED W DEMISE BEFORE 20WKS Current Active Problems Missed with demise before 20 completed weeks of gestation (Acute) Sepsis due to incomplete spontaneous (Acute) Procedures: Principal: D&C Hospital Course: Normal recovery Condition: Good - Instructions Diet, Activity, Other Instructions: Dr. Guerrero Murphy Liturgical Music Director discharge instructions Physical activity Resume your normal everyday activity as tolerated no heavy lifting or exercise until seen by your surgeon. You may walk unlimited kami of and climb stairs. You may resume driving the car when you feel safe and comfortable behind the wheel. No sexual activity as instructed by Dr. Murphy. Wound care If you have a bandage, leave it on, and keep dry for 48-72 hours. After that time discard the outer bandage. If they are tapes on the skin under the out of bandage leave them in place. They will peel off in the next 7 to 10 days. Do Not Peel them off. You may shower the day after surgery. If there are tapes present on the skin, you may shower over them. Diet There are no dietary restrictions. Eat healthy, high-fiber foods. Drink 6 to 8 glasses of liquid each day. This will assist in keeping your bowels are regular. Pain management You may take Tylenol or acetaminophen or Ibuprofen (for example, Motrin, Advil etc.) from my pain prescription medication is ordered should be taken as prescribed for moderate to severe pain. Call Dr. Murphy for any of the following: Severe pain not relieved by medication Fever of 101 or higher Excessive bleeding or drainage on dressing Inability to urinate Call the office at [phone] for an appointment in seven days. Referrals: Guerrero Murphy MD [Staff Physician] - Yo Schulte MD [Primary Care Provider] - Disposition: HOME - Home Medications Comprehensive Discharge Medication List: Ambulatory Orders Vitamins (Sjr) - 1 tab PO DAILY 07/29/15 Ibuprofen [Motrin -] 600 mg PO QID PRN #30 tablet 08/08/15 Doxycycline Hyclate [Vibramycin] 100 mg PO BID 11 Days #22 capsule 06/22/17
[2017-06-23 09:00] VITALS: BP 126/79; PULSE 59; TEMP 98.5
[2017-06-23] MEDS: CEFTRIAXONE 1 G/50 ML PREMIX 50 ML IVPB SCH (09:20)
[2017-06-23] MEDS: DOXYCYCLINE INJECTION 100 MG in DEXTROSE 5%-WATER - 100 ML IVPB SCH (10:08)
[2017-06-23] MEDS: PRENATAL VITAMINS W/ FOLIC ACID TABLET (FP) PO SCH (10:15)
--- NOTE | 2017-06-23 16:16 | PATH ---
Surgical Pathology Report Patient Name: GILBERT WALKER [facility]. Rec. #: [id number] /Age/Gender: 1980 (Age: 36) / F Account: [id number] Location: [facility] OBS/[employer] Taken: 06/21/2017 Received: 06/22/2017 Reported: 06/23/2017 Physicians: Guerrero Murphy M.D. Specimen(s) Received UTERINE CONTENTS Clinical History Septic Final Diagnosis UTERINE CONTENTS, DILATATION AND CURETTAGE: IMMATURE CHORIONIC VILLI AND DECIDUA CONSISTENT WITH PRODUCTS OF CONCEPTION. Electronically Signed Dottie Bundy M.D. Gross Description Received in formalin labeled "uterine contents," is a 12.0 x 7.5 x 1.0 cm aggregate of tate red soft tissue fragments. Villous tissue is identified. No somatic tissue is identified. A public utilities sales representative portion is submitted in one cassette. /06/22/201706/22/2017
== END 2017-06-23 15:00 | disposition home or self-care (01) | DRG 544 ==
LOC: JER 04:30 → JERBED 11:24 → J3W 12:51
PROVIDERS: ADMIT Obstetrics & Gynecology; ATTEND Obstetrics & Gynecology
PROC: 10D17ZZ Extraction of Products of Conception, Retained, Via Natural or Artificial Opening (ICD-10-PCS; principal; 2017-06-21 18:00)
DX: O03.37 Sepsis following incomplete spontaneous abortion (principal); A41.9 Sepsis, unspecified organism
CPT/HCPCS: 36415; 71010-TC; 76830-TC; 80053; 81003; 81015; 82550; 82803; 83605; 83735; 84484; 84702; 85025; 85610; 85730; 86850; 86900; 86901; 87040; 87086; 88305-TC; 93005; 93010; 94760; 99283-25

== ENCOUNTER 2017-08-29 15:00 | Emergency (ER) | payer OTHER ==
[2017-08-29 15:07] VITALS: BMI 29.7
--- NOTE | 2017-08-29 15:08 | PDOC ---
History of Present Illness - General Chief Complaint: Rash Stated Complaint: RIGHT THIGH REDNESS Time Seen by Provider: 08/29/17 15:08 Past History - Past Medical History Allergies/Adverse Reactions: Allergies Allergy/AdvReac Type Severity Reaction Status Date / Time No Known Allergies Allergy Verified 08/29/17 15:01 Home Medications: Ambulatory Orders NK [No Known Home Medication] 08/29/17 Asthma: No Cancer: No Cardiac Disorders: No COPD: No Diabetes: No HTN: No Seizures: No Thyroid Disease: No - Immunization History Immunization Up to Date: Yes - Suicide/Smoking/Psychosocial Hx Smoking History: Never smoked Have you smoked in the past 12 months: No Hx Alcohol Use: Yes Drug/Substance Use Hx: No Substance Use Type: Alcohol Hx Substance Use Treatment: No *Physical Exam - Vital Signs Last Vital Signs Temp Pulse Resp BP Pulse Ox 0/0 08/29/17 15:01 *DC/Admit/Observation/Transfer - Discharge Dispostion Condition at time of disposition: Stable - Referrals - Patient Instructions - Post Discharge Activity
[2017-08-29 15:16] VITALS: BP 131/85; PULSE 72; TEMP 98.3
--- NOTE | 2017-08-29 15:36 | PDOC ---
History of Present Illness - General Chief Complaint: Rash Stated Complaint: RIGHT THIGH REDNESS Time Seen by Provider: 08/29/17 15:08 History Source: Patient Exam Limitations: No Limitations - History of Present Illness Initial Comments: 08/29/17 15:29 The patient is a 36F with a PMH who presents with a rash. The patient states that she had a bite by an unknown insect. Today it spread across her R inner thigh and she went to an urgent care where they gave her 3 antibiotics and discharged her with the instructions of going to the ER if the rash spreads. She said she thought the rash spread and she came to the ER. She denies any fever, chills, nausea, vomiting, pain, or draining. She says she took the 3 antibiotics around 1300 today. Past History - Past Medical History Allergies/Adverse Reactions: Allergies Allergy/AdvReac Type Severity Reaction Status Date / Time No Known Allergies Allergy Verified 08/29/17 15:01 Home Medications: Ambulatory Orders NK [No Known Home Medication] 08/29/17 Asthma: No Cancer: No Cardiac Disorders: No COPD: No Diabetes: No HTN: No Seizures: No Thyroid Disease: No - Immunization History Immunization Up to Date: Yes - Suicide/Smoking/Psychosocial Hx Smoking History: Never smoked Have you smoked in the past 12 months: No Hx Alcohol Use: Yes Drug/Substance Use Hx: No Substance Use Type: Alcohol Hx Substance Use Treatment: No Review of Systems - Review of Systems Able to Perform ROS?: Yes Comments:: 08/29/17 15:32 GENERAL/CONSTITUTIONAL: No fever or chills. No weakness. HEAD, EYES, EARS, NOSE AND THROAT: No change in vision. No ear pain or discharge. No sore throat. CARDIOVASCULAR: No chest pain, palpitations, or lightheadedness. RESPIRATORY: No cough, wheezing, shortness of breath, or hemoptysis. GASTROINTESTINAL: No nausea, vomiting, diarrhea, constipation, or abdominal pain. GENITOURINARY: No dysuria, frequency, hematuria, or change in urination. MUSCULOSKELETAL: No joint or muscle swelling or pain. No neck or back pain. SKIN: Positive for rash. No lesions. NEUROLOGIC: No headache, numbness, tingling, weakness, loss of consciousness, or change in strength/sensation. ENDOCRINE: No increased thirst. No abnormal weight change. HEMATOLOGIC/LYMPHATIC: No anemia, easy bleeding, or history of blood clots. ALLERGIC/IMMUNOLOGIC: No hives or skin allergy. Is the patient limited Macedonian proficient: No *Physical Exam - Vital Signs Last Vital Signs Temp Pulse Resp BP Pulse Ox 98.3 F 72 16 131/85 100 08/29/17 15:01 08/29/17 15:01 08/29/17 15:01 08/29/17 15:01 08/29/17 15:01 - Physical Exam Comments: 08/29/17 15:32 GENERAL: Well developed, well nourished. Awake and alert. No acute distress. HEENT: Normocephalic, atraumatic. Hearing grossly normal. Moist mucous membranes. PERRLA, EOMI. No conjunctival pallor. Sclera are non-icteric. NECK: Full ROM. No JVD. CARDIOVASCULAR: Regular rate and rhythm. No murmurs, rubs, or gallops. PULMONARY: No evidence of respiratory distress. Lungs clear to auscultation bilaterally. No wheezing, rales or rhonchi. ABDOMINAL: Soft. Non-tender. Non-distended. No rebound or guarding. GENITOURINARY: No CVA tenderness bilaterally. MUSCULOSKELETAL: Normal range of motion at all joints. No bony deformities or tenderness. EXTREMITIES: No cyanosis. No clubbing. No edema. No calf tenderness. SKIN: 24cm x 14cm erythematous rash around R inner thigh, no involvement of the genitalia. Small area of induration at the center of the rash. Otherwise, warm and dry. Normal capillary refill. No jaundice. NEUROLOGICAL: Alert, awake, appropriate. Cranial nerves 2-12 intact. Normal speech. Gait is normal without ataxia. PSYCHIATRIC: Cooperative. Good eye contact. Appropriate mood and affect. Medical Decision Making - Medical Decision Making 08/29/17 15:34 The patient is a 36F with no PMH who presents with a rash on her R leg. She is taking 3 antibiotics from the urgent care. I have reassured her and told her to continue taking the abx. I informed her to return to the ER if she has any fever , chills, nausea, vomiting, spreading of the rash more than 2 inches from the marked area and/or drainage. *DC/Admit/Observation/Transfer Diagnosis at time of Disposition: Cellulitis Qualifiers: Site of cellulitis: extremity Site of cellulitis of extremity: lower extremity Laterality: right Qualified Code(s): L03.115 - Cellulitis of right lower limb - Discharge Dispostion Disposition: HOME Condition at time of disposition: Stable Admit: No - Referrals - Patient Instructions Printed Discharge Instructions: DI for Cellulitis -- Adult Additional Instructions: Please return to the ER if symptoms persist, worsen, or new symptoms arise. Please follow up with your primary care physician in 2-3 days. Please return to the ER if you have any signs or symptoms of chest pain, shortness of breath, uncontrollable fever, chills, nausea, vomiting, numbness, tingling, or weakness in any part of your body, changes in vision, or slurred speech. Please take your medications as prescribed. - Post Discharge Activity
== END 2017-08-29 15:40 | disposition home or self-care (01) ==
LOC: FER 15:00
DX: L03.115 Cellulitis of right lower limb (principal)
CPT/HCPCS: 99281-25